=== PATIENT | female | born 1945 | race Caucasian/White ===

== ENCOUNTER → 2017-01-17 | Outpatient (CLI) | payer OTHER ==
[~2017-01-17] MED LIST: ADULT LOW DOSE81 MG PO; AMARYL4 MG PO; FISH OIL 1,0001 EAC5 PO; GLUCOPHAGE500 MG PO; LISINOPRIL2.5 MG PO; PRAVASTATIN SOD40 MG PO; VITAMIN E400 UNIT PO
== END ==
LOC: MRI 11:26
DX: M17.11 Unilateral primary osteoarthritis, right knee (principal)